=== PATIENT | female | born 1990 | race Caucasian/White ===

== ENCOUNTER 2016-10-10 12:12 | Emergency (ER) | payer MEDICAID, OTHER ==
[~2016-10-10] VITALS: Ht 157.5 cm; Wt 67.2 kg
[2016-10-10 12:14] VITALS: Ht 157.5 cm; Wt 67.2 kg
[2016-10-10 13:31] LABS: ADD SCAN DIFF NO
[2016-10-10 13:33] LABS: BASOPHILS % 0.4 % (0.0-2.0); EOSINOPHILS # 0.3 10^3/ul (0.0-0.5); HEMATOCRIT 46.2 % (37.0-47.0); HEMOGLOBIN 15.3 g/dl (12.0-16.0); LYMPHOCYTES # 2.1 10^3/ul (0.8-2.9); LYMPHOCYTES % 20.1 % (15.0-51.0); MEAN CORPUSCULAR HEMOGLOBIN 29.9 pg (29.0-33.0); MEAN CORPUSCULAR HGB CONC 33.1 g/dl (32.0-37.0); MEAN CORPUSCULAR VOLUME 90.4 fl (82.0-101.0); MEAN PLATELET VOLUME 10.5 fl (7.4-10.4); MONOCYTE # 0.5 10^3/ul (0.3-0.9); MONOCYTES % 4.7 % (0.0-11.0); NEUTROPHIL # 7.4 10^3/ul (1.6-7.5); NEUTROPHILS % 71.4 % (39.0-77.0); PLATELET COUNT 252 10^3/UL (140-415); RED BLOOD COUNT 5.11 10^6/ul (4.20-5.40); RED CELL DISTRIBUTION WIDTH 13.3 % (11.5-14.5); WHITE BLOOD COUNT 10.3 10^3/ul (4.8-10.8)
[2016-10-10 13:37] LABS: ADD UMIC YES; URINE BILIRUBIN (Dip) NEGATIVE (NEGATIVE); URINE BLOOD (Dip) 3+ (NEGATIVE); URINE COLOR LT. YELLOW (YELLOW); URINE GLUCOSE (Dip) NEGATIVE (NEGATIVE); URINE KETONES (Dip) NEGATIVE (NEGATIVE); URINE LEUKOCYTE ESTERASE (Dip) TRACE (NEGATIVE); URINE NITRITE (Dip) NEGATIVE (NEGATIVE); URINE TOTAL PROTEIN (Dip) NEGATIVE (NEGATIVE); URINE UROBILINOGEN (Dip) 0.2 E.U./dL (0.1-1.0)
[2016-10-10 13:52] LABS: SQUAMOUS EPITHELIAL CELL,UR MODERATE; URINE RBCS 0-2 /HPF (0)
[2016-10-10 13:53] LABS: BACTERIA,URINE FEW
--- NOTE | 2016-10-10 14:11 | RADRPT ---
PROCEDURE: US OB. CLINICAL INDICATION: Vaginal bleeding in . TECHNIQUE: Transabdominal and endovaginal imaging of the gravid uterus is available for review COMPARISON: None available FINDINGS: There is a single intrauterine with a crown-rump length of 3.6 mm, giving an estimated ges tational age of 6 weeks 0 days by ultrasound criteria. No heart tones are detected. There is a large fluid collection surrounding the gestational sac which may represent separation of the amni on and chorion versus a large chronic subchorionic hemorrhage. The ovaries are unremarkable. IMPRESSION: 1. Single intrauterine with an estimated gestational age of 6 weeks 0 days by ultrasound c noyeria. No heart tones are detected. Findings are suspicious for early failed . R epeat pelvic ultrasound is recommended in 1 week. 2. Large collection surrounding the gestational sac which may represent separation of the amnion and chorion versus a large chronic subchorionic bleed RPTAT: .Fran Jimenez MD, Date Time Electronically viewed and signed by .Fran Jimenez MD, on 10/10/2016 14:10 .M/
--- NOTE | 2016-10-10 17:54 | ERD ---
ER Documentation Chief Complaint Date/Time DATE: 10/10/16 TIME: 17:52 Chief Complaint 10 WEEKS WITH SPOTTING TODAY HPI This is a 25-year-old female that presents to the ER with vaginal bleeding that started today. Patient is currently 10 weeks . She denies any pelvic pain or cramping. She denies any vaginal discharge. She denies any urinary frequency or dysuria. A0. Patient did have an ultrasound she first got she states at that time she was currently 6 weeks and everything appeared to be normal. ROS 12 point review of systems was done, all negative except per HPI. PMhx/Soc Medical and Surgical Hx: pt denies Medical Hx, pt denies Surgical Hx Hx Alcohol Use: No Hx Substance Use: No Hx Tobacco Use: No Smoking Status: Never smoker Physical Exam Vitals Vital Signs Date Time Temp Pulse Resp B/P Pulse Ox O2 Delivery O2 Flow Rate FiO2 10/10/16 12:14 98.6 91 18 143/75 99 Physical Exam GENERAL: The patient is well developed and appropriate for usual state of health , in no apparent distress. HEENT: Atraumatic. CHEST: Clear to auscultation bilaterally. There are no rales, wheezes or rhonchi. HEART: Regular rate and rhythm. No murmurs, clicks, rubs or gallops. ABDOMEN: Soft, nontender and nondistended. Good bowel sounds. No rebound or guarding. No gross peritonitis. No gross organomegaly or masses. No Noonan sign or McBurney point tenderness. BACK: No midline or flank tenderness. NEURO: Alert and oriented. Result Diagram: 10/10/16 1315 Results 24 hrs Laboratory Tests Test 10/10/16 13:15 White Blood Count 10.310^3/ul Red Blood Count 5.1110^6/ul Hemoglobin 15.3g/dl Hematocrit 46.2% Mean Corpuscular Volume 90.4fl Mean Corpuscular Hemoglobin 29.9pg Mean Corpuscular Hemoglobin Concent 33.1g/dl Red Cell Distribution Width 13.3% Platelet Count 23356^3/UL Mean Platelet Volume 10.5fl Neutrophils % 71.4% Lymphocytes % 20.1% Monocytes % 4.7% Eosinophils % 3.0% Basophils % 0.4% Nucleated Red Blood Cells % 0.0/100WBC Neutrophils # 7.410^3/ul Lymphocytes # 2.110^3/ul Monocytes # 0.510^3/ul Eosinophils # 0.310^3/ul Basophils # 0.010^3/ul Nucleated Red Blood Cells # 0.010^3/ul Urine Color LT. YELLOW Urine Clarity SLIGHTLY CLOUDY Urine pH 6.0 Urine Specific Pender 1.020 Urine Ketones NEGATIVE Urine Nitrite NEGATIVE Urine Bilirubin NEGATIVE Urine Urobilinogen 0.2 E.U./dL Urine Leukocyte Esterase TRACE Urine Microscopic RBC 0-2/HPF Urine Microscopic WBC 2-5/HPF Urine Squamous Epithelial Cells MODERATE Urine Amorphous Urates FEW Urine Bacteria FEW Urine Hemoglobin 3+ Urine Glucose NEGATIVE% Urine Total Protein NEGATIVE Beta HCG, Quantitative 92303.0mIU/ml Procedures/MDM Differential diagnosis: Threatened , missed , incomplete , ectopic , molar , UTI, pyelonephritis. Unfortunately at this time the appears to only be 6 weeks with no heart tones. This is suspicious for demise. I spoke to radiologist and per radiologist patient should repeat ultrasound in 1 week. At this time suspicion for ectopic is low as there is an intrauterine . Suspicion for molar is low. Patient needs to follow-up with her [employer] within 48 hours or return to ER sooner if symptoms worsen. My medical decision making was shared with the patient she understands and agrees with. Departure Diagnosis: Primary Impression: Threatened Condition: Stable Patient Instructions: Possible Miscarriage (Threatened ) Additional Instructions: Llame al doctor MAANA y reva kathe DUSTIN PARA DENTRO DE 1-2 THOMAS.Dgale a la secretaria que nosotros le instruimos hacer esta dustin.Avise o llame si shaw condicin se empeora antes de la dustin. Regresa aqui si peor o no mejor. DANIE CHAPIN October 10, 2016 17:54
== END 2016-10-10 14:50 | disposition home or self-care (01) ==
LOC: FTE 12:12
DX: O20.0 Threatened abortion (principal); Z3A.01 Less than 8 weeks gestation of pregnancy
CPT/HCPCS: 36415; 76801; 76817; 81001; 84702; 85025; 86900; 86901; Z7502; 81003